=== PATIENT | female | born 1990 | race American Indian/Alaskan Native ===

== ENCOUNTER 2017-04-13 17:03 | Emergency (ER) | payer SELFPAY ==
[2017-04-13 18:01] LABS: Basophils % (Auto) 0.5 % (0.0-1.8); Eosinophils % (Auto) 3.3 % (0.0-4.3); Hematocrit 35.3 % (30.3-42.9); Hemoglobin 11.1 gm/dl (10.1-14.3); Mean Corpuscular HGB Conc 32 % (30-34); Mean Corpuscular Volume 73 fl (79-97); Platelet Count 332 K/mm3 (140-440); Red Blood Count 4.82 M/mm3 (3.65-5.03); Red Cell Distribution Width 14.5 % (13.2-15.2); White Blood Count 7.6 K/mm3 (4.5-11.0)
[2017-04-13 18:02] LABS: Bilirubin,Urine NEG (Negative); Blood,Urine LG (Negative); Ketones,Urine NEG (Negative); Leukocyte Esterase,Urine MOD (Negative); Mucus,Urine 3+ /HPF; Nitrite,Urine NEG (Negative)
[2017-04-13 18:07] LABS: Mean Corpuscular Hemoglobin 23 pg (28-32)
[2017-04-13 18:07] LABS: RBC,Urine > 182.0 /HPF (0.0-6.0)
--- NOTE | 2017-04-13 18:15 | Emergency Department Report ---
ED Female HPI - General Chief complaint: Vaginal Bleeding Stated complaint: 6 1/2 WEEKS PREG/BLEEDING Time Seen by Provider: 04/13/17 18:13 Source: patient, RN notes reviewed, old records reviewed Mode of arrival: Ambulatory Limitations: No Limitations - History of Present Illness Initial comments: This is a 27-year-old female who was previously unknown to this provider. She is 7, para 5. Last menstrual period is February 27. Patient presents to the ER with a complaint of "I think I'm having a miscarriage." Patient reports crampy vaginal bleeding for the past 3 days. No hematemesis or bright red blood per rectum, no irritative or obstructive urinary symptoms, no trauma. The bleeding has been constant, and does not have exacerbating or relieving factors. MD Complaint: vaginal bleeding -: Gradual Location: labia Radiation: non-radiating Severity: mild Quality: cramping Consistency: intermittent Improves with: none Worsens with: none Are you Now?: Yes Associated Symptoms: vaginal bleeding, abdominal pain. denies: vaginal discharge - Related Data Sexually active: Yes Previous Rx's Medication Instructions Recorded Last Taken Type Ferrous Sulfate [Feosol 325 MG tab] 325 mg PO BID #60 tablet 07/18/16 Unknown Rx HYDROcodone/APAP 5-325 [[place] 1 each PO Q6HR PRN #30 tablet 07/18/16 Unknown Rx 5/325] Ibuprofen [Motrin] 800 mg PO Q8HR PRN #30 tablet 07/18/16 Unknown Rx Vit W-Ca,Fe,FA(<1 mg) 1 each PO DAILY #30 tablet 07/18/16 Unknown Rx [ Vitamins] Allergies Allergy/AdvReac Type Severity Reaction Status Date / Time BELL AdvReac Shortness Uncoded 06/16/13 02:31 of Breath ED Review of Systems ROS: Stated complaint: 6 1/2 WEEKS PREG/BLEEDING Other details as noted in HPI Constitutional: denies: fever, malaise Eyes: denies: vision change ENT: denies: epistaxis Respiratory: denies: cough Cardiovascular: denies: chest pain Gastrointestinal: denies: vomiting Genitourinary: abnormal menses Musculoskeletal: denies: back pain Skin: denies: lesions Neurological: denies: weakness Psychiatric: as per HPI ED Past Medical Hx - Past Medical History Previous Medical History?: Yes Hx Hypertension: No Hx Congestive Heart Failure: No Hx Diabetes: No Hx Deep Vein Thrombosis: No Hx Renal Disease: No Hx Sickle Cell Disease: No Hx Seizures: No Hx Asthma: Yes (last attack 2004) Hx COPD: No Hx HIV: No - Surgical History Past Surgical History?: Yes Additional Surgical History: hernia, - Social History Smoking Status: Current Every Day Smoker Substance Use Type: None - Medications Home Medications: Home Medications Medication Instructions Recorded Confirmed Last Taken Type Ferrous Sulfate [Feosol 325 MG tab] 325 mg PO BID #60 tablet 07/18/16 Unknown Rx HYDROcodone/APAP 5-325 [[place] 1 each PO Q6HR PRN #30 tablet 07/18/16 Unknown Rx 5/325] Ibuprofen [Motrin] 800 mg PO Q8HR PRN #30 tablet 07/18/16 Unknown Rx Vit W-Ca,Fe,FA(<1 mg) 1 each PO DAILY #30 tablet 07/18/16 Unknown Rx [ Vitamins] ED Physical Exam - General Limitations: No Limitations General appearance: alert, in no apparent distress - Head Head exam: Present: atraumatic, normocephalic - Eye Eye exam: Present: normal appearance, EOMI. Absent: nystagmus - ENT ENT exam: Present: normal exam, normal orophraynx, mucous membranes moist, normal external ear exam - Neck Neck exam: Present: normal inspection, full ROM. Absent: tenderness, meningismus - Respiratory Respiratory exam: Present: normal lung sounds bilaterally. Absent: respiratory distress, wheezes, rales, rhonchi, stridor, chest wall tenderness - Cardiovascular Cardiovascular Exam: Present: regular rate, normal rhythm, normal heart sounds. Absent: bradycardia, tachycardia, irregular rhythm, systolic murmur, diastolic murmur, rubs, gallop - GI/Abdominal GI/Abdominal exam: Present: soft, normal bowel sounds. Absent: distended, tenderness, guarding, rebound, rigid, pulsatile mass - External exam: Present: normal external exam Speculum exam: Present: normal speculum exam, vaginal bleeding Bi-manual exam: Present: normal bi-manual exam, other (escorted by nurse Tracy Santana). Absent: cervical motion tendernes, adnexal tenderness, adnexal mass - Extremities Exam Extremities exam: Present: normal inspection, full ROM, normal capillary refill. Absent: calf tenderness - Back Exam Back exam: Present: normal inspection, full ROM. Absent: tenderness, CVA tenderness (R), CVA tenderness (L), muscle spasm, paraspinal tenderness, vertebral tenderness - Neurological Exam Neurological exam: Present: alert, oriented X3, normal gait, other (Extraocular movements intact. Tongue midline. No facial droop. Facial sensation intact to light touch in the V1, V2, V3 distribution bilaterally. 5 and 5 strength in 4 extremities.. Sensation is intact to light touch in 4 extremities.). Absent : motor sensory deficit - Psychiatric Psychiatric exam: Present: normal affect, normal mood - Skin Skin exam: Present: warm, dry, intact, normal color. Absent: rash ED Course Vital Signs 04/13/17 04/13/17 04/13/17 17:14 20:52 21:59 Temperature 98 F Pulse Rate 69 72 91 H Respiratory 16 15 18 Rate Blood Pressure 119/66 Blood Pressure 119/68 127/71 [Left] O2 Sat by Pulse 97 100 98 Oximetry ED Medical Decision Making - Lab Data Result diagrams: 04/13/17 17:39 Vital Signs 04/13/17 04/13/17 17:14 20:52 Temperature 98 F Pulse Rate 69 72 Respiratory 16 15 Rate Blood Pressure 119/66 Blood Pressure 119/68 [Left] O2 Sat by Pulse 97 100 Oximetry Lab Results 04/13/17 04/13/17 04/13/17 Range/Units 17:38 17:39 17:39 WBC 7.6 (4.5-11.0) K/mm3 RBC 4.82 (3.65-5.03) M/mm3 Hgb 11.1 (10.1-14.3) gm/dl Hct 35.3 (30.3-42.9) % MCV 73 L (79-97) fl MCH 23 L (28-32) pg MCHC 32 (30-34) % RDW 14.5 (13.2-15.2) % Plt Count 332 (140-440) K/mm3 Lymph % (Auto) 42.9 H (13.4-35.0) % [place] % (Auto) 6.2 (0.0-7.3) % Eos % (Auto) 3.3 (0.0-4.3) % Baso % (Auto) 0.5 (0.0-1.8) % Lymph # 3.3 (1.2-5.4) K/mm3 [place] # 0.5 (0.0-0.8) K/mm3 Eos # 0.3 (0.0-0.4) K/mm3 Baso # 0.0 (0.0-0.1) K/mm3 Seg Neutrophils % 47.1 (40.0-70.0) % Seg Neutrophils # 3.6 (1.8-7.7) K/mm3 HCG, Quant 19.98 H (0-4) mIU/mL Urine Color Red (Yellow) Urine Turbidity Clear (Clear) Urine pH 6.0 (5.0-7.0) Ur Specific [place] 1.028 (1.003-1.030) Urine Protein 100 mg/dl (Negative) mg/dL Urine Glucose (UA) Neg (Negative) mg/dL Urine Ketones Neg (Negative) mg/dL Urine Blood Lg (Negative) Urine Nitrite Neg (Negative) Urine Bilirubin Neg (Negative) Urine Urobilinogen 2.0 (<2.0) mg/dL Ur Leukocyte Esterase Mod (Negative) Urine WBC (Auto) 68.0 H (0.0-6.0) /HPF Urine RBC (Auto) > 182.0 (0.0-6.0) /HPF U Epithel Cells (Auto) 11.0 (0-13.0) /HPF Urine Mucus 3+ /HPF Blood Type Antibody Screen 04/13/17 Range/Units 17:39 WBC (4.5-11.0) K/mm3 RBC (3.65-5.03) M/mm3 Hgb (10.1-14.3) gm/dl Hct (30.3-42.9) % MCV (79-97) fl MCH (28-32) pg MCHC (30-34) % RDW (13.2-15.2) % Plt Count (140-440) K/mm3 Lymph % (Auto) (13.4-35.0) % [place] % (Auto) (0.0-7.3) % Eos % (Auto) (0.0-4.3) % Baso % (Auto) (0.0-1.8) % Lymph # (1.2-5.4) K/mm3 [place] # (0.0-0.8) K/mm3 Eos # (0.0-0.4) K/mm3 Baso # (0.0-0.1) K/mm3 Seg Neutrophils % (40.0-70.0) % Seg Neutrophils # (1.8-7.7) K/mm3 HCG, Quant (0-4) mIU/mL Urine Color (Yellow) Urine Turbidity (Clear) Urine pH (5.0-7.0) Ur Specific [place] (1.003-1.030) Urine Protein (Negative) mg/dL Urine Glucose (UA) (Negative) mg/dL Urine Ketones (Negative) mg/dL Urine Blood (Negative) Urine Nitrite (Negative) Urine Bilirubin (Negative) Urine Urobilinogen (<2.0) mg/dL Ur Leukocyte Esterase (Negative) Urine WBC (Auto) (0.0-6.0) /HPF Urine RBC (Auto) (0.0-6.0) /HPF U Epithel Cells (Auto) (0-13.0) /HPF Urine Mucus /HPF Blood Type B POSITIVE Antibody Screen Negative - Radiology Data Radiology results: report reviewed, image reviewed Obstetrics ultrasound does not demonstrate intrauterine or extrauterine . Ectopic is not excluded. - Medical Decision Making Differential diagnosis: Miscarriage, , ectopic Assessment and plan: 27-year-old female with history of vaginal bleeding and cramping for the past 3 days, quantitative hCG is 19, no irritative or obstructive urinary symptoms, Rh+, no definitive intrauterine identified on ultrasound. The patient is afebrile, with reassuring vital signs , has a benign abdominal exam gynecologic examination, is hemodynamically stable. She is reliable for follow-up. She is instructed to rest, avoid heavy lifting, avoid sexual activity, and return in 48 hours for repeat physical examination, and quantitative hCG. Return precautions are reviewed. Critical care attestation.: If time is entered above; I have spent that time in minutes in the direct care of this critically ill patient, excluding procedure time. ED Disposition Clinical Impression: Miscarriage Disposition: DC-01 TO HOME OR SELFCARE Is pt being admited?: No Does the pt Need Aspirin: No Condition: Stable Instructions: Spontaneous Miscarriage (ED) Additional Instructions: Rest and avoid heavy lifting. Avoid strenuous physical activity. Avoid having sex with her partner. Cultures were sent today, was also be available in the next 3-5 days. Please have your primary care doctor or volunteer services coordinator contact the medical records department to obtain culture results. Return to the ER in 2 days for repeat blood test/quantitative hCG. Return to the ER right away with new pain, worsened pain, migration of pain, fevers, chills, lethargy, irritability, projectile vomiting, change in mental status, loss of consciousness, bleeding more than 2 pads soaked through and through per hour. Take acetaminophen, every 4 hours [id number] as needed for pain. Referrals: PRIMARY CAREMD [Primary Care Provider] - 3-5 Days [facility] [Provider Group] - 3-5 Days [facility] [Provider Group] - 3-5 Days [facility] [Provider Group] - 3-5 Days Forms: Work/School Release Form(ED)
--- NOTE | 2017-04-13 20:54 | Ultrasound Report ---
FINAL REPORT EXAM: US OB \T\lt; = 14 WEEKS FETUS HISTORY: pregnanct vag bleed TECHNIQUE: Transabdominal pelvic ultrasound was performed in multiple grayscale sonographic images were obtained of the uterus and adnexa PRIORS: None. FINDINGS: Uterus measures approximately 9.7 x 4.2 x 5.3 centimeters with endometrial stripe thickness 15 millimeters. A gestational sac is not identified in the uterus, or elsewhere. Ovaries were not visualized. IMPRESSION: 1. Nonvisualization of the ovaries. 2. Gestational sac is not identified in the uterus, or elsewhere. Possibility of ectopic is not excluded given the history provided. The patient can be further assessed with serial quantitative beta HCG and repeat ultrasound if indicated. 3. Please refer to report from endovaginal ultrasound from 04/13/2017 for additional information.
--- NOTE | 2017-04-13 20:55 | Ultrasound Report ---
FINAL REPORT EXAM: US OB TRANSVAGINAL HISTORY: pregnanct vag bleed TECHNIQUE: Endovaginal ultrasound was performed in multiple grayscale sonographic images were obtained of the uterus and adnexa. PRIORS: None. FINDINGS: Endometrial stripe thickness is measured at 6.8 millimeters. A gestational sac is not identified in the uterus, or elsewhere in the images provided. Right ovary measures approximately 2.1 x 1.1 x 2.3 centimeters. Left ovary measures approximately 3 x 3 x 1.7 centimeters. There is a 2.9 centimeter cyst in the left ovary. IMPRESSION: 1. Gestational sac is not identified in the uterus, or elsewhere. Possibility of ectopic is not excluded given the history provided. The patient can be further assessed with serial quantitative beta HCG and repeat ultrasound if indicated. 2. 2.9 centimeter left ovarian cyst.
[2017-04-13 22:00] VITALS: BP 127/71
== END 2017-04-13 22:00 | disposition home or self-care (01) ==
LOC: ED 17:03
DX: O03.9 Complete or unspecified spontaneous abortion without complication (principal); F17.210 Nicotine dependence, cigarettes, uncomplicated; Z91.018 Allergy to other foods; Z3A.01 Less than 8 weeks gestation of pregnancy
CPT/HCPCS: 36415; 76801; 76817; 81001; 84702; 85025; 86850; 86900; 86901; 87210; 87591; 99284

== ENCOUNTER 2017-06-20 22:00 | Emergency (ER) | payer OTHER ==
[2017-06-20 23:35] LABS: Hemoglobin 11.1 gm/dl (10.1-14.3); Mean Corpuscular HGB Conc 32 % (30-34); Mean Corpuscular Volume 74 fl (79-97); Platelet Count 273 K/mm3 (140-440); Red Blood Count 4.72 M/mm3 (3.65-5.03); Red Cell Distribution Width 14.5 % (13.2-15.2); White Blood Count 9.1 K/mm3 (4.5-11.0)
[2017-06-20 23:36] LABS: Anion Gap 18 mmol/L; BUN/Creatinine Ratio 16; Blood Urea Nitrogen 8 mg/dL (7-17); Calcium 8.9 mg/dL (8.4-10.2); Carbon Dioxide 21 mmol/L (22-30); Chloride 103.2 mmol/L (98-107); Glucose 96 mg/dL (65-100); Potassium 3.9 mmol/L (3.6-5.0); Sodium 138 mmol/L (137-145)
[2017-06-20 23:50] LABS: Mean Corpuscular Hemoglobin 24 pg (28-32)
[2017-06-21 00:20] LABS: Bilirubin,Urine NEG (Negative); Blood,Urine NEG (Negative); Ketones,Urine NEG (Negative); Leukocyte Esterase,Urine NEG (Negative); Mucus,Urine FEW /HPF; Nitrite,Urine NEG (Negative); Urobilinogen,Urine < 2.0 mg/dL (<2.0)
--- NOTE | 2017-06-21 01:22 | Ultrasound Report ---
FINAL REPORT PROCEDURE: US OB < = 14 WEEKS FETUS TECHNIQUE: Real-time transabdominal sonography of the uterus, placenta, amniotic fluid, adnexa, and fetus was performed with image documentation. Measurements were obtained to determine age/size. M-mode Doppler was used to document heartbeat. CPT 68802 HISTORY: vag bleed/pain with COMPARISON: No prior studies are available for comparison. FINDINGS: CRL: 4.4 mm, which corresponds to a gestational age of: 6 weeks, 1 days. Yolk Sac: Normal. Embryonic Cardiac Activity: No cardiac activity is identified. Gestational Sac: Normal. Amniotic fluid: Normal. Cervix: Normal. Right Ovary: There is a 2.4 centimeter cyst. Left Ovary: Normal. Estimated delivery date: 02/13/2018 Uterus and adnexa: Normal. IMPRESSION: There is an intrauterine gestation at 6 weeks and 1 day estimated gestational age. No cardiac activity is identified. demise is not excluded. Beta HCG measurements may be helpful. There is a cyst in the right ovary.
--- NOTE | 2017-06-21 01:24 | Ultrasound Report ---
FINAL REPORT PROCEDURE: US OB transvaginal TECHNIQUE: Real-time transvaginal sonography of the uterus, placenta, amniotic fluid, adnexa, and fetus was performed with image documentation. Measurements were obtained to determine age/size. M-mode Doppler was used to document heartbeat. HISTORY: vag bleed/pain with COMPARISON: No prior studies are available for comparison. FINDINGS: CRL: 4.4 mm, which corresponds to a gestational age of: 6 weeks, 1 days. Yolk Sac: Normal. Embryonic Cardiac Activity: No cardiac activity is identified. Gestational Sac: Normal. Amniotic fluid: Normal. Cervix: Normal. Right Ovary: There is a 2.4 centimeter cyst. Left Ovary: Normal. Estimated delivery date: 02/13/2018 Uterus and adnexa: Normal. IMPRESSION: There is an intrauterine gestation at 6 weeks and 1 day estimated gestational age. No cardiac activity is identified. demise is not excluded. Beta HCG measurements may be helpful. There is a cyst in the right ovary.
[2017-06-21] MEDS ORDERED: TYLENOL PO ONE (02:23)
--- NOTE | 2017-06-21 05:48 | Emergency Department Report ---
HPI - General Chief Complaint: Vaginal Bleeding Time Seen by Provider: 06/21/17 05:33 - HPI HPI: This is a 27 year-old female presents to ED complaining of vaginal spotting that happened earlier last night. She states she only had about 1 episode of light vaginal spotting. Patient states she has not seen any bleeding since then. Patient states she took a home positive test in April about a week before . Patient also complains of light intermittent pelvic cramping. She states she has not been to an [employer] this She denies fevers/chills/nausea/vomiting/abdominal pain/chest pain/shortness of breath. ED Past Medical Hx - Past Medical History Hx Hypertension: No Hx Congestive Heart Failure: No Hx Diabetes: No Hx Deep Vein Thrombosis: No Hx Renal Disease: No Hx Sickle Cell Disease: No Hx Seizures: No Hx Asthma: Yes (last attack 2004) Hx COPD: No Hx HIV: No - Surgical History Additional Surgical History: hernia, - Social History Smoking Status: Current Every Day Smoker Substance Use Type: None - Medications Home Medications: Home Medications Medication Instructions Recorded Confirmed Last Taken Type Ferrous Sulfate [Feosol 325 MG tab] 325 mg PO BID #60 tablet 07/18/16 Unknown Rx HYDROcodone/APAP 5-325 [[place] 1 each PO Q6HR PRN #30 tablet 07/18/16 Unknown Rx 5/325] Ibuprofen [Motrin] 800 mg PO Q8HR PRN #30 tablet 07/18/16 Unknown Rx Acetaminophen [Tylenol Extra 500 mg PO Q6H #30 tablet 06/21/17 Unknown Rx Strength] Vit Calc,Iron,Folic 1 each PO DAILY #30 tablet 06/21/17 Unknown Rx [ Vitamins] ED Review of Systems ROS: Stated complaint: POSSIBLE MISCARRIAGE Other details as noted in HPI Constitutional: denies: chills, fever Eyes: denies: eye pain, eye discharge, vision change ENT: denies: ear pain, throat pain Respiratory: denies: cough, shortness of breath, wheezing Cardiovascular: denies: chest pain, palpitations Endocrine: no symptoms reported Gastrointestinal: denies: abdominal pain, nausea, diarrhea Genitourinary: denies: urgency, dysuria, frequency, discharge Musculoskeletal: denies: back pain, joint swelling, arthralgia Skin: denies: rash, lesions Neurological: denies: headache, weakness, numbness, paresthesias, confusion Psychiatric: denies: anxiety, depression Hematological/Lymphatic: denies: easy bleeding, easy bruising Physical Exam - Physical Exam Vital Signs: Vital Signs 06/20/17 06/21/17 06/21/17 22:44 01:48 01:51 Temperature 99.2 F Pulse Rate 115 H Respiratory 18 18 Rate Blood Pressure 153/90 110/94 O2 Sat by Pulse 100 92 100 Oximetry 06/21/17 06/21/17 06/21/17 02:00 02:30 03:00 Temperature Pulse Rate Respiratory Rate Blood Pressure 123/78 114/68 118/67 O2 Sat by Pulse 100 99 99 Oximetry 06/21/17 06/21/17 06/21/17 03:30 04:00 04:30 Temperature Pulse Rate Respiratory Rate Blood Pressure 119/74 103/59 102/55 O2 Sat by Pulse 97 98 97 Oximetry 06/21/17 05:00 Temperature Pulse Rate Respiratory Rate Blood Pressure 110/63 O2 Sat by Pulse 99 Oximetry Physical Exam: GENERAL: Alert and oriented x3, no apparent distress, Normal Gait, atraumatic. HEAD: Head is normocephalic and a-traumatic. LUNGS: Symetrical with respiration, No wheezing, no rales or crackles, CTAB. HEART: S1, S2 present, regular rate and rhythm without murmur, no rubs, no gallops. Non tender to palpation ABDOMEN: No organomegaly was noted,Positive bowel sounds, soft, and non- distended. . Nontender to palpation on all Quadrants, NO CVA tenderness. BACK: Full range of motion, no spinal tenderness, nontender to palpation. GENITOURINARY: External genitalia without erythema, exudate or discharge. Vaginal vault is with mild grayish discharge. Cervix is of normal color without lesion. Cervical os is closed. No bleeding noted. Uterus is noted to be of normal size and nontender. No cervical motion tenderness. No masses are palpated. The adnexa are without masses or tenderness. SKIN: Warm and dry, No lesions, No ulceration or induration present. ED Course Vital Signs 06/20/17 06/21/17 06/21/17 22:44 01:48 01:51 Temperature 99.2 F Pulse Rate 115 H Respiratory 18 18 Rate Blood Pressure 153/90 110/94 O2 Sat by Pulse 100 92 100 Oximetry 06/21/17 06/21/17 06/21/17 02:00 02:30 03:00 Temperature Pulse Rate Respiratory Rate Blood Pressure 123/78 114/68 118/67 O2 Sat by Pulse 100 99 99 Oximetry 06/21/17 06/21/17 06/21/17 03:30 04:00 04:30 Temperature Pulse Rate Respiratory Rate Blood Pressure 119/74 103/59 102/55 O2 Sat by Pulse 97 98 97 Oximetry 06/21/17 05:00 Temperature Pulse Rate Respiratory Rate Blood Pressure 110/63 O2 Sat by Pulse 99 Oximetry ED Medical Decision Making - Lab Data Result diagrams: 06/20/17 22:58 06/20/17 22:58 Laboratory Last Values WBC 9.1 K/mm3 (4.5-11.0) 06/20/17 22:58 RBC 4.72 M/mm3 (3.65-5.03) 06/20/17 22:58 Hgb 11.1 gm/dl (10.1-14.3) 06/20/17 22:58 Hct 35.0 % (30.3-42.9) 06/20/17 22:58 MCV 74 fl (79-97) L 06/20/17 22:58 MCH 24 pg (28-32) L 06/20/17 22:58 MCHC 32 % (30-34) 06/20/17 22:58 RDW 14.5 % (13.2-15.2) 06/20/17 22:58 Plt Count 273 K/mm3 (140-440) 06/20/17 22:58 Sodium 138 mmol/L (137-145) 06/20/17 22:58 Potassium 3.9 mmol/L (3.6-5.0) 06/20/17 22:58 Chloride 103.2 mmol/L (98-107) 06/20/17 22:58 Carbon Dioxide 21 mmol/L (22-30) L 06/20/17 22:58 Anion Gap 18 mmol/L 06/20/17 22:58 BUN 8 mg/dL (7-17) 06/20/17 22:58 Creatinine 0.5 mg/dL (0.7-1.2) L 06/20/17 22:58 Estimated GFR > 60 ml/min 06/20/17 22:58 BUN/Creatinine Ratio 16 % 06/20/17 22:58 Glucose 96 mg/dL (65-100) 06/20/17 22:58 Calcium 8.9 mg/dL (8.4-10.2) 06/20/17 22:58 HCG, Quant 44885 mIU/mL (0-4) H 06/20/17 22:58 Urine Color Yellow (Yellow) 06/20/17 23:32 Urine Turbidity Clear (Clear) 06/20/17 23:32 Urine pH 5.0 (5.0-7.0) 06/20/17 23:32 Ur Specific [place] 1.031 (1.003-1.030) H 06/20/17 23:32 Urine Protein 30 mg/dl mg/dL (Negative) 06/20/17 23:32 Urine Glucose (UA) Neg mg/dL (Negative) 06/20/17 23:32 Urine Ketones Neg mg/dL (Negative) 06/20/17 23:32 Urine Blood Neg (Negative) 06/20/17 23:32 Urine Nitrite Neg (Negative) 06/20/17 23:32 Urine Bilirubin Neg (Negative) 06/20/17 23:32 Urine Urobilinogen < 2.0 mg/dL (<2.0) 06/20/17 23:32 Ur Leukocyte Esterase Neg (Negative) 06/20/17 23:32 Urine WBC (Auto) 2.0 /HPF (0.0-6.0) 06/20/17 23:32 Urine RBC (Auto) 2.0 /HPF (0.0-6.0) 06/20/17 23:32 U Epithel Cells (Auto) 5.0 /HPF (0-13.0) 06/20/17 23:32 Calcium Oxalate Crystal 1+ 06/20/17 23:32 Urine Mucus Few /HPF 06/20/17 23:32 - Radiology Data Radiology results: report reviewed, image reviewed FINAL REPORT PROCEDURE: US OB lt; = 14 WEEKS FETUS TECHNIQUE: Real-time transabdominal sonography of the uterus, placenta, amniotic fluid, adnexa, and fetus was performed with image documentation. Measurements were obtained to determine age/size. M-mode Doppler was used to document heartbeat. CPT 05747 HISTORY: vag bleed/pain with COMPARISON: No prior studies are available for comparison. FINDINGS: CRL: 4.4 mm, which corresponds to a gestational age of: 6 weeks, 1 days. Yolk Sac: Normal. Embryonic Cardiac Activity: No cardiac activity is identified. Gestational Sac: Normal. Amniotic fluid: Normal. Cervix: Normal. Right Ovary: There is a 2.4 centimeter cyst. Left Ovary: Normal. Estimated delivery date: 02/13/2018 Uterus and adnexa: Normal. IMPRESSION: There is an intrauterine gestation at 6 weeks and 1 day estimated gestational age. No cardiac activity is identified. demise is not excluded. Beta HCG measurements may be helpful. There is a cyst in the right ovary. Transcribed By: CO Dictated By: GUSTABO FLOREZ MD Electronically Authenticated By: GUSTABO FLOREZ MD Signed Date/Time: 06/20/172119 - Medical Decision Making 27-year-old female presents with a Intra uterine at 6 weeks ED course: Patient received OB US in ED. OB ULTRASOUND SHOWS REPORTS ABOVE. CBC, CMP, urine. Preg test positive, urine quant level 13,615. Wet prep negative findings. G/C cultures sent Discussed findings with the patient. I DISCUSSED WITH PATIENT THAT DUE TO HER LMP SHE SHOULD BE Farther ALONG THAN what the ultrasound shows. Patient states she may not been sure about her LMP I discussed with patient that I will send her home on vitamins as well as her need to come back in. Patient understands that she will return in 2 days for another appointment level to determine status of . I discussed with patient that threatened AB, demise, normal are all possible outcomes Patient is fully aware she understands instructions given essentially she will return pain Signs are normal patient is in no acute distress. Critical care attestation.: If time is entered above; I have spent that time in minutes in the direct care of this critically ill patient, excluding procedure time. ED Disposition Clinical Impression: Threatened in first trimester Normal IUP (intrauterine ) on ultrasound Qualifiers: Trimester: first trimester Qualified Code(s): Z34.91 - Encounter for supervision of normal , unspecified, first trimester Disposition: DC-01 TO HOME OR SELFCARE Is pt being admited?: No Does the pt Need Aspirin: No Condition: Stable Instructions: Spontaneous Miscarriage (ED), (ED) Additional Instructions: Return in 2 days for beta Quant level Make sure to follow up with the primary care physician as discussed. Take all your medications as you've been prescribed. If you have any worsening symptoms or develop new symptoms please return to ED immediately. Prescriptions: Acetaminophen [Tylenol Extra Strength] 500 mg PO Q6H #30 tablet Vit Calc,Iron,Folic [ Vitamins] 1 each PO DAILY #30 tablet Referrals: PRIMARY CARE, [Primary Care Provider] - 3-5 Days MADAN ROMAN MD [Referring] - 3-5 Days FLORINDA AGUIAR MD [Staff Physician] - 3-5 Days BHARGAV AGUIAR MD [Referring] - 3-5 Days Forms: Work/School Release Form(ED) Time of Disposition: 05:55
[2017-06-21 06:23] VITALS: BP 113/70
== END 2017-06-21 06:26 | disposition home or self-care (01) ==
LOC: ED 22:00
DX: O20.0 Threatened abortion (principal); F17.200 Nicotine dependence, unspecified, uncomplicated; Z3A.01 Less than 8 weeks gestation of pregnancy
CPT/HCPCS: 36415; 76801; 76817; 80048; 81001; 84702; 85027; 87210; 87591; 99284

== ENCOUNTER 2017-07-03 06:05 | Emergency (ER) | payer SELFPAY ==
[2017-07-03 06:48] VITALS: BP 117/64
[2017-07-03 07:07] LABS: Basophils % (Auto) 0.6 % (0.0-1.8); Eosinophils % (Auto) 2.3 % (0.0-4.3); Hematocrit 31.2 % (30.3-42.9); Hemoglobin 10.2 gm/dl (10.1-14.3); Mean Corpuscular HGB Conc 33 % (30-34); Mean Corpuscular Volume 75 fl (79-97); Platelet Count 229 K/mm3 (140-440); Red Blood Count 4.16 M/mm3 (3.65-5.03); Red Cell Distribution Width 14.2 % (13.2-15.2)
[2017-07-03 07:21] LABS: Mean Corpuscular Hemoglobin 24 pg (28-32)
[2017-07-03] MEDS ORDERED: TYLENOL PO ONE (08:06)
--- NOTE | 2017-07-03 08:20 | Emergency Department Report ---
HPI - General Chief Complaint: Vaginal Bleeding Time Seen by Provider: 07/03/17 08:01 - HPI HPI: This is a 27 year-old female presents to the emergency department with concern for a miscarriage. The patient thinks she is about 7-8 weeks . She took a home test and also was here on 06/20/17 that confirmed intrauterine . The past 2-3 days she has been having some moderate bleeding and yesterday also developed some abdominal cramping. She says that she went to work yesterday and passed a large blood clot the size of a "grapefruit." She does not currently have an RECRUITER ACCOUNT MANAGER. She is on vitamins. She has not taken anything for her symptoms prior to presentation. She denies any fever, vomiting, back pain, dysuria or vaginal discharge. ED Past Medical Hx - Past Medical History Previous Medical History?: Yes Hx Hypertension: No Hx Congestive Heart Failure: No Hx Diabetes: No Hx Deep Vein Thrombosis: No Hx Renal Disease: No Hx Sickle Cell Disease: No Hx Seizures: No Hx Asthma: Yes (last attack 2004) Hx COPD: No Hx HIV: No - Surgical History Past Surgical History?: Yes Additional Surgical History: hernia, - Social History Smoking Status: Current Every Day Smoker Substance Use Type: Marijuana - Medications Home Medications: Home Medications Medication Instructions Recorded Confirmed Last Taken Type Ferrous Sulfate [Feosol 325 MG tab] 325 mg PO BID #60 tablet 07/18/16 Unknown Rx HYDROcodone/APAP 5-325 [Gaylord 1 each PO Q6HR PRN #30 tablet 07/18/16 Unknown Rx 5/325] Ibuprofen [Motrin] 800 mg PO Q8HR PRN #30 tablet 07/18/16 Unknown Rx Acetaminophen [Tylenol Extra 500 mg PO Q6H #30 tablet 06/21/17 Unknown Rx Strength] Vit Calc,Iron,Folic 1 each PO DAILY #30 tablet 06/21/17 Unknown Rx [ Vitamins] HYDROcodone/APAP 5-325 [Gaylord 1 each PO Q6H PRN #10 tablet 07/03/17 Unknown Rx 5-325 mg TAB] Methylergonovine [Methergine] 0.2 mg PO Q8HR #6 tablet 07/03/17 Unknown Rx ED Review of Systems ROS: Stated complaint: POSSIBLE MISCARRIAGE Other details as noted in HPI Comment: All other systems reviewed and negative Constitutional: denies: chills, fever Eyes: denies: eye pain, eye discharge, vision change ENT: denies: ear pain, throat pain Respiratory: denies: cough, shortness of breath, wheezing Cardiovascular: denies: chest pain, palpitations Gastrointestinal: abdominal pain. denies: nausea, vomiting Genitourinary: other (vaginal bleeding). denies: dysuria, discharge Musculoskeletal: denies: back pain, joint swelling, arthralgia Skin: denies: rash, lesions Neurological: denies: headache, weakness, paresthesias Physical Exam - Physical Exam Vital Signs: Vital Signs 07/03/17 07/03/17 07/03/17 06:08 06:16 06:19 Pulse Rate 87 106 H Respiratory 17 23 22 Rate Blood Pressure 117/64 O2 Sat by Pulse 100 100 Oximetry 07/03/17 06:31 Pulse Rate 77 Respiratory 21 Rate Blood Pressure O2 Sat by Pulse 100 Oximetry Physical Exam: GENERAL: The patient is well-developed well-nourished. HENT: Normocephalic. Atraumatic. Patient has moist mucous membranes. EYES: Extraocular motions are intact. Pupils equal reactive to light bilaterally. NECK: Supple. Trachea is midline. CHEST/LUNGS: Clear to auscultation. There is no respiratory distress noted. HEART/CARDIOVASCULAR: Regular. There is no tachycardia. There is no murmur. ABDOMEN: Abdomen is soft, nontender. Patient has normal bowel sounds. There is no abdominal distention. SKIN: Skin is warm and dry. NEURO: The patient is awake, alert, and oriented. The patient is cooperative. The patient has no focal neurologic deficits. The patient has normal speech. MUSCULOSKELETAL: There is no tenderness or deformity. There is no limitation range of motion. There is no evidence of acute injury. ED Course Vital Signs 07/03/17 07/03/17 07/03/17 06:08 06:16 06:19 Pulse Rate 87 106 H Respiratory 17 23 22 Rate Blood Pressure 117/64 O2 Sat by Pulse 100 100 Oximetry 07/03/17 06:31 Pulse Rate 77 Respiratory 21 Rate Blood Pressure O2 Sat by Pulse 100 Oximetry - Consultations Consultation #1: I spoke to the RECRUITER ACCOUNT MANAGER refrigeration manager, Dr. Marcelo, who was made aware of the patient 's decline and beta hCG and the ultrasound showing incomplete with some products of retained conception. He recommended the patient be prescribed Methergine every 8 hours for a few days, something for pain, and he will see her in the office in a few days. 07/03/17 09:55 ED Medical Decision Making - Lab Data Result diagrams: 07/03/17 06:51 07/03/17 06:51 - Radiology Data Radiology results: report reviewed ULTRASOUND OB LESS THAN 14 WEEKS FETUS ULTRASOUND OB TRANSVAGINAL HISTORY: Bleeding during , beta hCG level is 1435. COMPARISON: 06/21/17. TECHNIQUE: Transabdominal and transvaginal ultrasound with color doppler interrogation. FINDINGS: Uterus: 11 x 6 x 5 cm. No viable intrauterine or heart tones are identified on today's exam.. Endometrium: The endometrium is thickened and slightly complex measuring up to 1.9 cm near the uterine fundus. There is also soft tissue echogenicity seen within the endocervical canal which is dilated up to 1.4 cm. Incomplete is suspected until proven otherwise. Right ovary: 4.0 x 2.8 x 3.1 cm. A 2.3 cm cyst is identified. Left ovary: 2.4 x 1.4 x 1.7 cm. No focal abnormality. No pelvic fluid or mass is identified. Normal color doppler interrogation. IMPRESSION: No viable intrauterine is identified. Findings are consistent with an incomplete with retained products of conception. Transcribed By: TTR Dictated By: LYNN WALSH JR, MD Electronically Authenticated By: LYNN WALSH JR, MD Signed Date/Time: 07/03/17 0913 - Medical Decision Making This patient presents with concern for miscarriage with vaginal bleeding and abdominal/pelvic cramping while . Looking back at her old chart from , the patient had a beta hCG of about 13,000 at that time and an ultrasound that showed a intrauterine without a heart rate concerning for possible demise versus early . Today the beta hCG is about 1500 and the ultrasound shows incomplete with some retained products of conception. Labs are otherwise unremarkable. Vital signs stable. Spoke with the RECRUITER ACCOUNT MANAGER who recommends Methergine and then follow-up in the office in the next few days. All of the lab and imaging results were discussed with the patient as well as the plan and she understands and agrees. She will return to the ER with any worsening of her symptoms or any acute distress. Patient is blood type B positive and therefore does not need the RhoGAM shot. - Differential Diagnosis , threatened miscarriage, spontaneous miscarriage, fibroids Critical Care Time: No Critical care attestation.: If time is entered above; I have spent that time in minutes in the direct care of this critically ill patient, excluding procedure time. ED Disposition Clinical Impression: Incomplete , Retained products of conception, Vaginal bleeding Disposition: TO HOME OR SELFCARE Is pt being admited?: No Condition: Stable Instructions: Spontaneous Miscarriage (ED) Additional Instructions: Please take the Methergine as prescribed. Return to the emergency Department with any worsening of your symptoms or any acute distress. Otherwise you are encouraged to follow up with Dr. Marcelo, RECRUITER ACCOUNT MANAGER, in the next few days. Prescriptions: HYDROcodone/APAP 5-325 [Gaylord 5-325 mg TAB] 1 each PO Q6H PRN #10 tablet PRN Reason: Pain Methylergonovine [Methergine] 0.2 mg PO Q8HR #6 tablet Referrals: THEA MARCELO MD [Staff Physician] - 3-5 Days Forms: Work/School Release Form(ED) Time of Disposition: 09:59
[2017-07-03 08:49] LABS: Anion Gap 17 mmol/L; BUN/Creatinine Ratio 8; Blood Urea Nitrogen 5 mg/dL (7-17); Calcium 8.5 mg/dL (8.4-10.2); Carbon Dioxide 22 mmol/L (22-30); Chloride 105.6 mmol/L (98-107); Glucose 87 mg/dL (65-100); Potassium 3.8 mmol/L (3.6-5.0); Sodium 141 mmol/L (137-145)
--- NOTE | 2017-07-03 09:17 | Ultrasound Report ---
ULTRASOUND OB LESS THAN 14 WEEKS FETUS ULTRASOUND OB TRANSVAGINAL HISTORY: Bleeding during , beta hCG level is 1435. COMPARISON: 06/21/17. TECHNIQUE: Transabdominal and transvaginal ultrasound with color doppler interrogation. FINDINGS: Uterus: 11 x 6 x 5 cm. No viable intrauterine or heart tones are identified on today's exam.. Endometrium: The endometrium is thickened and slightly complex measuring up to 1.9 cm near the uterine fundus. There is also soft tissue echogenicity seen within the endocervical canal which is dilated up to 1.4 cm. Incomplete is suspected until proven otherwise. Right ovary: 4.0 x 2.8 x 3.1 cm. A 2.3 cm cyst is identified. Left ovary: 2.4 x 1.4 x 1.7 cm. No focal abnormality. No pelvic fluid or mass is identified. Normal color doppler interrogation. IMPRESSION: No viable intrauterine is identified. Findings are consistent with an incomplete with retained products of conception.
[2017-07-03] MEDS ORDERED: NORCO 5/325 PO ONE (09:49)
== END 2017-07-03 10:38 | disposition home or self-care (01) ==
LOC: ED 06:05
DX: O03.4 Incomplete spontaneous abortion without complication (principal); F17.200 Nicotine dependence, unspecified, uncomplicated; F12.10 Cannabis abuse, uncomplicated
CPT/HCPCS: 36415; 76801; 76817; 80048; 84702; 84703; 85025; 86850; 86900; 86901; 99285